=== PATIENT | male | born 1980 | race Caucasian/White ===

== ENCOUNTER 2017-05-25 16:28 | Emergency (ER) | payer SELFPAY ==
[2017-05-25 16:49] VITALS: BP 153/96; PULSE 90; RESP 20; TEMP 97.5
[2017-05-25] MEDS ORDERED: DIPH,PERTUS(ACELL)TETVAC-LF 0.5 ML VIAL IM ONE (17:39)
--- NOTE | 2017-05-25 17:40 | ED ---
Wound/Laceration HPI - General Chief Complaint: Wound/Laceration Stated Complaint: Head Injury Time Seen by Provider: 05/25/17 17:19 Source: patient, RN notes reviewed Mode of arrival: ambulatory Limitations: no limitations - History of Present Illness Initial Comments: 36-year-old male presents emergency Department with chief complaint of laceration to his scalp. Patient states that he was working on a furnace states that the impact slipped states he went forward striking his head on a junction box. Patient states that he did not lose consciousness denies any current nausea, vomiting, blurred vision, focal weakness, severe headache. He states he had a mild headache which is resolving. Patient denies any other complaints at this time. He is unsure when his last tetanus was. - Related Data Allergies Allergy/AdvReac Type Severity Reaction Status Date / Time No Known Allergies Allergy Verified 05/25/17 16:49 Review of Systems ROS Statement: Those systems with pertinent positive or pertinent negative responses have been documented in the HPI. ROS Other: All systems not noted in ROS Statement are negative. Past Medical History Past Medical History: No Reported History History of Any Multi-Drug Resistant Organisms: None Reported Past Surgical History: Hernia Repair Past Psychological History: ADD/ADHD Smoking Status: Never smoker Past Alcohol Use History: Occasional Past Drug Use History: None Reported General Exam Limitations: no limitations General appearance: alert, in no apparent distress Head exam: Present: atraumatic, normocephalic. Absent: normal inspection (0.5 cm scalp laceration on top of the scalp) Eye exam: Present: normal appearance, PERRL, EOMI. Absent: scleral icterus, conjunctival injection, periorbital swelling ENT exam: Present: normal exam, normal oropharynx, mucous membranes moist, TM's normal bilaterally, normal external ear exam Neck exam: Present: normal inspection, full ROM. Absent: tenderness, meningismus, lymphadenopathy Respiratory exam: Present: normal lung sounds bilaterally. Absent: respiratory distress, wheezes, rales, rhonchi, stridor Cardiovascular Exam: Present: regular rate, normal rhythm, normal heart sounds. Absent: systolic murmur, diastolic murmur, rubs, gallop, clicks Neurological exam: Present: alert, oriented X3, CN II-XII intact, reflexes normal. Absent: motor sensory deficit Skin exam: Present: warm, dry, intact, normal color. Absent: rash Course Vital Signs 05/25/17 16:46 Temperature 97.5 F L Pulse Rate 90 Respiratory 20 Rate Blood Pressure 153/96 O2 Sat by Pulse 98 Oximetry Medical Decision Making - Medical Decision Making 36-year-old male present emergency department for scalp laceration. This is a superficial laceration we did discuss stable versus conservative treatment. He states that he does not want alex at this time and is appropriate treatment. Patient has no neurological deficits this is minor head injury with scalp abrasion. Patient we discharged with updated tetanus and return parameters were discussed. Disposition Clinical Impression: Scalp laceration, Minor head injury Disposition: HOME SELF-CARE Condition: Stable Instructions: Head Injury (ED) Additional Instructions: Please return to the Emergency Department if symptoms worsen or any other concerns. Referrals: Rishabh Thomson MD [Primary Care Provider] - 1-2 days Time of Disposition: 17:43
== END 2017-05-25 18:00 | disposition home or self-care (01) ==
LOC: EC 16:28
DX: S01.01XA Laceration without foreign body of scalp, initial encounter (principal); Z23 Encounter for immunization; W22.09XA Striking against other stationary object, initial encounter; Y99.0 Civilian activity done for income or pay; Y92.69 Other specified industrial and construction area as the place of occurrence of the external cause
CPT/HCPCS: 90471; 90715; 99282

== ENCOUNTER → 2019-09-20 | Outpatient (CLI) | payer SELFPAY | END | disposition home or self-care (01) | LOC: LABWHC1 14:58 | PROVIDERS: ATTEND Family Medicine | DX: B34.9 Viral infection, unspecified (principal) | CPT/HCPCS: 87502 ==

== ENCOUNTER 2020-01-27 22:55 | Emergency (ER) | payer OTHER ==
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
[2020-01-27 23:09] LABS: Basophils # (A) 0.1 k/uL (0-0.2); Basophils % (A) 1 %; Eosinophils # (A) 0.2 k/uL (0-0.7); Eosinophils % (A) 3 %; HCT 43.6 % (39.0-53.0); HGB 14.3 gm/dL (13.0-17.5); Lymphocytes # (A) 3.3 k/uL (1.0-4.8); Lymphocytes % (A) 39 %; MCH 28.9 pg (25.0-35.0); MCHC 32.9 g/dL (31.0-37.0); MCV 87.8 fL (80.0-100.0); Mean Platelet Volume 7.1; Monocytes # (A) 0.4 k/uL (0-1.0); Monocytes % (A) 5 %; Neutrophils # (A) 4.3 k/uL (1.3-7.7); Neutrophils % (A) 50 %; Platelet Count 313 k/uL (150-450); RBC 4.96 m/uL (4.30-5.90); RDW 13.3 % (11.5-15.5); WBC 8.5 k/uL (3.8-10.6)
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
[2020-01-27 23:11] LABS: Glucose,Whole Blood 102 mg/dL (75-99)
--- NOTE | 2020-01-27 23:11 | XR ---
EXAMINATION TYPE: XR chest 1V portable DATE OF EXAM: 01/27/2020 COMPARISON: NONE HISTORY: Unresponsive TECHNIQUE: Single view FINDINGS: Heart and mediastinum are normal. Lungs are clear. Diaphragm is normal. Bony thorax appears normal. There are chest leads. IMPRESSION: Normal chest.
[2020-01-27 23:29] LABS: ALT 25 U/L (4-49); AST 24 U/L (17-59); African American GFR (CKD) >90 (>60 ml/min/1.73 sqM); Albumin 3.3 g/dL (3.5-5.0); Alkaline Phosphatase 55 U/L (38-126); Anion Gap 10 mmol/L; Blood Urea Nitrogen 14 mg/dL (9-20); Calcium 7.2 mg/dL (8.4-10.2); Carbon Dioxide 20 mmol/L (22-30); Chloride 112 mmol/L (98-107); Glucose 93 mg/dL (74-99); Non-African American GFR(CKD) >90 (>60 ml/min/1.73 sqM); Partial Thromboplastin Time 22.3 sec (22.0-30.0); Potassium 2.9 mmol/L (3.5-5.1); Prothrombin Time 10.7 sec (9.0-12.0); Sodium 142 mmol/L (137-145); Total Bilirubin 0.3 mg/dL (0.2-1.3); Total Protein 5.9 g/dL (6.3-8.2)
--- NOTE | 2020-01-27 23:31 | CT ---
EXAMINATION TYPE: CT brain cspine wo con DATE OF EXAM: 01/27/2020 COMPARISON: None HISTORY: Responsive CT DLP: mGycm Automated exposure control for dose reduction was used. Exam performed with no contrast. There is midline frontal scalp hematoma. The calvarium is intact. There is right posterior frontal la rge scalp hematoma that measures up to 1.5 cm in thickness. The ventricles and sulci appear normal. There is no mass effect nor midline shift. There is no sign o f intracranial hemorrhage. I see no sign of cerebral edema. The calvarium is intact. Cervical vertebra have fairly normal spacing and alignment. Posterior elements are intact. There is n o compression fracture. Facet joints are intact. The skull base is intact. There is incomplete pneuma tization of the right mastoid sinus. I see no bony destructive process. IMPRESSION: Negative CT scan cervical spine. No fracture. Negative CT scan of the brain. Frontal and right frontotemporal scalp hematomas.
[2020-01-27 23:35] VITALS: TEMP 97.9
[2020-01-27 23:41] LABS: Alcohol 217 mg/dL
[2020-01-28 01:31] VITALS: BP 131/86; PULSE 98; RESP 17
== END 2020-01-28 01:15 | disposition other institution (70) ==
LOC: EC 22:55
DX: S06.0X9A Concussion with loss of consciousness of unspecified duration, initial encounter (principal); S00.03XA Contusion of scalp, initial encounter; F10.129 Alcohol abuse with intoxication, unspecified; Y90.9 Presence of alcohol in blood, level not specified; Y09 Assault by unspecified means; Y92.481 Parking lot as the place of occurrence of the external cause
CPT/HCPCS: 36415; 70450; 71045; 72125; 72170; 80053; 80320; 83605; 84484; 85025; 85610; 85730; 86850; 86900; 86901; 93005; 99285

== ENCOUNTER → 2020-04-26 | Outpatient (CLI) | payer SELFPAY | END | disposition home or self-care (01) | LOC: LABWHC1 14:52 | PROVIDERS: ATTEND Emergency Medicine | DX: Z20.828 Contact with and (suspected) exposure to other viral communicable diseases (principal) | CPT/HCPCS: U0003; C9803 ==

== ENCOUNTER → 2020-12-12 | Outpatient (CLI) | payer BC ==
--- NOTE | 2020-12-12 22:49 | CONS ---
CONSULTATION REASON FOR CONSULTATION: 40-year-old gentleman has been evaluated in the sleep center for possible obstructive sleep apnea-hypopnea syndrome. HISTORY OF PRESENT ILLNESS/SLEEP WAKE EVALUATION: SLEEP SCHEDULE: Patient's usual sleep schedule on weekdays from 9:00 to 9:30 p.m. until 5:15 to 5:30 a.m. and on weekends from 9:00 a.m. until 10:00 to 11:00 p.m. FALLING ASLEEP: No problems with falling asleep. No TV in bedroom. DURING SLEEP: The patient uses sleeps on the back and side positions. He has loud snoring, witnessed episodes of stopped breathing during sleep. The patient wakes up from sleep 3 times with episodes of nocturia, choking, dry mouth, gasping for air, sweating. In the morning, the patient wakes up tired, has difficulties to pay attention, falling asleep during the day, has problems with concentration, irritability, depression, sexual dysfunction. [place] Sleepiness Scale is 9. DURING THE DAY/SLEEP WAKE EVALUATION: The patient takes one nap around 5:30 p.m. No history of hypnagogic hallucinations, sleep paralysis or cataplexy. PAST MEDICAL HISTORY: Positive for depression. PAST SURGICAL HISTORY: Hernia repair. MEDICATIONS: Citalopram 20 mg once a day. SOCIAL HISTORY: Negative for smoking, alcohol consumption occasional. FAMILY HISTORY: Snoring, heart problems, hypertension. REVIEW OF SYSTEMS: Awakenings from sleep and tiredness during the day. PHYSICAL EXAMINATION: GENERAL: gentleman without distress. BP 141/84, HR 82, RR 15, height 6 feet 1-1/4 inches, weight 267.8 pounds, temperature 97.3, oxygen saturation at room air 96%, BMI 35.0. HEENT: PERRLA, EOMI. Evaluation of oropharynx showed tongue protrudes midline. Extremely low position of soft palate. Mallampati 4. Neck is wide,19 inches in circumference. Neck: Supple, no JVD. Thyroid is not palpable. LUNGS: Clear to percussion and to auscultation. Good air exchange. No wheezing or rhonchi. HEART: S1, S2 regular. No murmurs, gallops, or rubs. ABDOMEN: Soft and nontender. Bowel sounds are present. No organomegaly appreciated. EXTREMITIES: No clubbing or cyanosis. TOXICOLOGY SUPERVISOR: Awake, alert, and oriented X3. Cranial nerves 2 to 7 intact. There is no fasciculation or atrophy. noted. No focal deficits observed. IMPRESSION: 1. Loud snoring, witnessed episodes of stopped breathing during sleep, extremely low position of soft palate, Mallampati 4, wide neck, episodes of sleepiness, obstructive sleep apnea-hypopnea syndrome. 2. Obesity, BMI 35.0. 3. Depression. 4. Status post hernia repair. PLAN: 1. Home sleep apnea test for evaluation of patient's breathing during sleep. 2. CPAP/BiPAP titration if sleep study confirms obstructive sleep apnea-hypopnea syndrome. 3. Preferable position during sleep on the side. 4. No driving if patient feels any sleepiness. 5. I will see patient for follow up visit to explain results of testing and following plan. Thank you very much for referring this patient for consultation. Sami Bingham MD, PhD, FAASM Diplomat of [employer], Reordering Clerk of [facility] MMODL / IJN: [id number] /
== END ==
LOC: SLEEP 16:44
PROVIDERS: ATTEND Internal Medicine
DX: G47.33 Obstructive sleep apnea (adult) (pediatric) (principal); E66.9 Obesity, unspecified; F32.9 Major depressive disorder, single episode, unspecified; Z68.35 Body mass index [BMI] 35.0-35.9, adult; Z98.890 Other specified postprocedural states
CPT/HCPCS: 99211

== ENCOUNTER 2021-06-08 02:01 | Emergency (ER) | payer BC, OTHER ==
[2021-06-08] MEDS ORDERED: SODIUM CHLORIDE 0.9% 1,000 ML IV STA (02:04)
[2021-06-08] MEDS ORDERED: HYDROmorphone 1 MG/ML 1 ML SYRINGE IVP STA (02:04)
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
[2021-06-08 02:13] LABS: Glucose,Whole Blood 111 mg/dL (75-99)
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
[2021-06-08 02:32] LABS: Basophils # (A) 0.1 k/uL (0-0.2); Basophils % (A) 1 %; Eosinophils # (A) 0.3 k/uL (0-0.7); Eosinophils % (A) 3 %; HCT 44.4 % (39.0-53.0); HGB 15.2 gm/dL (13.0-17.5); Lymphocytes # (A) 2.8 k/uL (1.0-4.8); Lymphocytes % (A) 30 %; MCH 29.7 pg (25.0-35.0); MCHC 34.2 g/dL (31.0-37.0); MCV 86.9 fL (80.0-100.0); Mean Platelet Volume 7.1; Monocytes # (A) 0.5 k/uL (0-1.0); Monocytes % (A) 5 %; Neutrophils # (A) 5.5 k/uL (1.3-7.7); Neutrophils % (A) 59 %; Platelet Count 305 k/uL (150-450); RBC 5.11 m/uL (4.30-5.90); RDW 12.6 % (11.5-15.5); WBC 9.2 k/uL (3.8-10.6)
[2021-06-08 02:44] VITALS: RESP 22
[2021-06-08 02:52] LABS: ALT 38 U/L (4-49); AST 48 U/L (17-59); African American GFR (CKD) >90 (>60 ml/min/1.73 sqM); Albumin 4.5 g/dL (3.5-5.0); Alkaline Phosphatase 65 U/L (38-126); Anion Gap 13 mmol/L; Blood Urea Nitrogen 13 mg/dL (9-20); Calcium 9.1 mg/dL (8.4-10.2); Carbon Dioxide 25 mmol/L (22-30); Chloride 100 mmol/L (98-107); Glucose 118 mg/dL (74-99); Non-African American GFR(CKD) >90 (>60 ml/min/1.73 sqM); Potassium 3.8 mmol/L (3.5-5.1); Sodium 138 mmol/L (137-145); Total Bilirubin 0.3 mg/dL (0.2-1.3)
[2021-06-08 02:53] LABS: Prothrombin Time 10.3 sec (9.0-12.0)
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
[2021-06-08 02:57] LABS: Alcohol 220 mg/dL
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
[2021-06-08] MEDS ORDERED: traMADol 50 MG STARTER PACK 3 TAB BTL PO STA (05:21)
[2021-06-08 05:32] VITALS: BP 112/69; PULSE 88; TEMP 97.8
== END 2021-06-08 05:20 | disposition other institution (70) ==
LOC: EC 02:01
DX: S20.212A Contusion of left front wall of thorax, initial encounter (principal); F10.129 Alcohol abuse with intoxication, unspecified; V68.5XXA Driver of heavy transport vehicle injured in noncollision transport accident in traffic accident, initial encounter; Y92.410 Unspecified street and highway as the place of occurrence of the external cause; Y90.7 Blood alcohol level of 200-239 mg/100 ml
CPT/HCPCS: 99285; 96374; 96361; 36415; 86900; 86901; 80053; 83605; 84484; 85025; 85610; 85730; 86850; 80320; 73610; 72170; 73502; 71045; 72125; 70450; 71260; 74177; J1170; Q9967

== ENCOUNTER → 2021-06-20 | Outpatient (CLI) | payer BC ==
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
== END | disposition home or self-care (01) ==
LOC: RADXRMAIN 11:14
PROVIDERS: ATTEND Family Medicine
DX: J98.4 Other disorders of lung (principal)
CPT/HCPCS: 71046

== ENCOUNTER → 2021-06-28 | Outpatient (CLI) | payer BC ==
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
== END | disposition home or self-care (01) ==
LOC: RADCTMAIN 08:10
PROVIDERS: ATTEND Family Medicine
DX: S22.42XD Multiple fractures of ribs, left side, subsequent encounter for fracture with routine healing (principal); V89.2XXD Person injured in unspecified motor-vehicle accident, traffic, subsequent encounter
CPT/HCPCS: 71275; Q9967